=== PATIENT | male | born 1950 | race Caucasian/White ===

== ENCOUNTER 2018-03-08 16:59 | Emergency (ER) | payer MEDICARE ==
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
[2018-03-08] MEDS ORDERED: ASPI81TA94 PO (17:20)
[2018-03-08] MEDS ORDERED: [UNRECOGNIZED DRUG - CODE] (17:20)
[2018-03-08] MEDS ORDERED: AMLO-99 PO (17:20)
[2018-03-08] MEDS ORDERED: NEBI5TAB PO (17:20)
[2018-03-08] MEDS ORDERED: ROS10 FT (17:20)
[2018-03-08] MEDS ORDERED: CLOP75TA43 PO (17:20)
[2018-03-08] MEDS ORDERED: IRBE75TA10 PO (17:20)
--- NOTE | 2018-03-08 18:17 | RADIOLOGY IMAGING REPORT ---
FACILITY: [facility] [place] PATIENT NAME: Lupillo Briones : 1950 MR: [id number] V: [id number] EXAM DATE: ORDERING PHYSICIAN: RITA LOWERY TECHNOLOGIST: Location: [facility] Patient: Lupillo Briones : 1950 Visit/Account:[id number] Date of Sevice: 03/08/2018 Examination: ANKLE 3 VIEW MIN LEFT Comparison: None. History: trauma, pain Findings: Soft tissue swelling. There are a few tiny likely corticated osseous fragments adjacent to the medial malleolus suggestive of remote trauma. No definite acute fractures identified. Alignment i s within normal limits with mild degenerative change at the tibiotalar joint. Atherosclerosis IMPRESSION: 1. No left ankle acute fracture or malalignment. 2. Soft tissue swelling. 3. Atherosclerosis. Report Dictated By: Zachary Gottlieb MD at 03/08/2018 6:11 PM Report E-Signed By: Zachary Gottlieb MD at 03/08/2018 6:13 PM WSN:[id number]
--- NOTE | 2018-03-08 18:20 | RADIOLOGY IMAGING REPORT ---
FACILITY: [facility] - [place] PATIENT NAME: Lupillo Briones : 1950 MR: [id number] V: [id number] EXAM DATE: ORDERING PHYSICIAN: RITA LOWERY TECHNOLOGIST: Location: [facility] Patient: Lupillo Briones : 1950 Visit/Account:[id number] Date of Sevice: 03/08/2018 Examination: ANKLE 3 VIEW MIN RIGHT, TIBIA FIBULA RIGHT Comparison: None. History: trauma, pain Findings: 3 views right ankle: Soft tissue swelling. No fracture. Alignment is within normal limits. Mild ankle and midfoot degenerative change. 2 views right tibia-fibula: No fracture. Knee alignment is within normal limits with mild to moderate osteoarthritis. Popliteal atherosclerosis. IMPRESSION: 1. Right lower extremity soft tissue swelling. 2. No right tibia-fibula or right ankle fracture or malalignment. Report Dictated By: Zachary Gottlieb MD at 03/08/2018 6:14 PM Report E-Signed By: Zachary Gottlieb MD at 03/08/2018 6:16 PM WSN:[id number]
--- NOTE | 2018-03-08 18:20 | RADIOLOGY IMAGING REPORT ---
FACILITY: [facility] PATIENT NAME: Lupillo Briones : 1950 MR: [id number] V: [id number] EXAM DATE: ORDERING PHYSICIAN: RITA LOWERY TECHNOLOGIST: Location: [facility] [place] Patient: Lupillo Briones : 1950 Visit/Account:[id number] Date of Sevice: 03/08/2018 Examination: ANKLE 3 VIEW MIN RIGHT, TIBIA FIBULA RIGHT Comparison: None. History: trauma, pain Findings: 3 views right ankle: Soft tissue swelling. No fracture. Alignment is within normal limits. Mild ankle and midfoot degenerative change. 2 views right tibia-fibula: No fracture. Knee alignment is within normal limits with mild to moderate osteoarthritis. Popliteal atherosclerosis. IMPRESSION: 1. Right lower extremity soft tissue swelling. 2. No right tibia-fibula or right ankle fracture or malalignment. Report Dictated By: Zachary Gottlieb MD at 03/08/2018 6:14 PM Report E-Signed By: Zachary Gottlieb MD at 03/08/2018 6:16 PM WSN:[id number]
[2018-03-08 19:00] VITALS: BP 154/84
--- NOTE | 2018-03-08 20:23 | RADIOLOGY IMAGING REPORT ---
FACILITY: [facility] PATIENT NAME: Lupillo Briones : 1950 MR: [id number] V: [id number] EXAM DATE: ORDERING PHYSICIAN: RITA LOWERY TECHNOLOGIST: Location: [facility] - [place] Patient: Luipllo Briones : 1950 Visit/Account:[id number] Date of Sevice: 03/08/2018 EXAMINATION: VENOUS DOPP LOW RIGHT EXTREMITY COMPARISON: None Available HISTORY: injury, pain and swelling to calf, edema FINDINGS: Standard right lower extremity Doppler ultrasound with color flow and spectral analysis is performed. The common femoral, femoral, and popliteal veins are widely patent and compress appropriately. The v isualized calf veins and the proximal greater saphenous vein are patent. No popliteal fluid collection. The contralateral common femoral vein is patent. IMPRESSION: No right lower extremity deep venous thrombosis. Report Dictated By: Zachary Gottlieb MD at 03/08/2018 8:19 PM Report E-Signed By: Zachary Gottlieb MD at 03/08/2018 8:20 PM WSN:[id number]
== END 2018-03-08 21:34 | disposition home or self-care (01) ==
LOC: ER 17:30
DX: S90.01XA Contusion of right ankle, initial encounter (principal); W22.8XXA Striking against or struck by other objects, initial encounter; Y93.89 Activity, other specified; M25.571 Pain in right ankle and joints of right foot; I10 Essential (primary) hypertension; E78.00 Pure hypercholesterolemia, unspecified; J45.909 Unspecified asthma, uncomplicated
CPT/HCPCS: 99284